=== PATIENT | female | born 1970 | race Caucasian/White ===

== ENCOUNTER → 2024-12-21 | Outpatient (CLI) | payer MEDICAID, SELFPAY ==
--- NOTE | 2024-12-21 13:15 | XR_ITS ---
Examination: Screening digital mammography, bilateral Computer aided detection 3-D breast Tomosynthesis, bilateral Date and time of exam: December 21, 2024 1309 hours Compared to mammograms dating to July 29, 2018 Indication: Screening, patient states left breast tenderness 4 months Technique: Nonmagnified MLO, CC views of the breasts to been obtained, reconstructed from 3-D Tomosynthesis images. R2 computer aided detection program utilized for evaluation of suspicious masses and/or abnormal calcifications. 3-D Tomosynthesis images obtained. Findings: Scattered areas of fibroglandular density2 4 mm circumscribed nodule upper outer left breast 12 mm focal asymmetry retroareolar region left breast Impression: BI-RADS Category 0: Incomplete: Need additional imaging evaluation Recommend follow-up spot tomographic views of 4 mm circumscribed nodule upper outer left breast as well as 12 mm focal asymmetry retroareolar region left breast, left breast sonography to complete the workup
== END | disposition home or self-care (01) ==
LOC: CDIM 13:01
PROVIDERS: Referring Provider Nurse Practitioner; Visit Provider Nurse Practitioner
DX: Z12.31 Encounter for screening mammogram for malignant neoplasm of breast (principal); N63.21 Unspecified lump in the left breast, upper outer quadrant; N64.89 Other specified disorders of breast
CPT/HCPCS: 77063; 77067

== ENCOUNTER → 2025-02-07 | Outpatient (CLI) | payer MEDICAID, SELFPAY ==
--- NOTE | 2025-02-07 10:00 | XR_ITS ---
Examination: Breast ultrasound, unilateral, left complete Date and time of exam: February 08, 2000 2510 0 1:00 AM INDICATIONS: Mammogram December 21, 2024 4 mm circumscribed nodule upper outer left breast 12 mm focal asymmetry retroareolar region left breast Technique: Real-time lr scale ultrasonographic imaging performed left breast including all 4 quadrants as well as nipple retroareolar and axillary region. Findings: No cystic or solid mass IMPRESSION: BI-RADS Category 1: Negative studies
--- NOTE | 2025-02-07 10:30 | XR_ITS ---
Examination: Diagnostic digital mammography, unilateral, left Computer aided detection 3-D breast Tomosynthesis, unilateral Date and time of exam: February 07, 2025 1003 hours, INDICATIONS: Mammogram December 21, 2024 4 mm circumscribed nodule upper outer left breast, 12 mm focal asymmetry retroareolar region left breast Technique: Nonmagnified MLO, CC views of the left breast have been obtained, reconstructed from 3-D Tomosynthesis images. R2 computer aided detection program utilized for evaluation of suspicious masses and/or abnormal calcifications. 3-D Tomosynthesis images obtained. Findings: Scattered areas of fibroglandular density 4 mm circumscribed nodule upper outer left breast No suspicious retroareolar nodule Impression: BI-RADS category 2: Benign findings Recommend yearly follow-up mammography
== END | disposition home or self-care (01) ==
LOC: CDIM 09:50
PROVIDERS: PCP Family Medicine; Referring Provider Family Medicine; Visit Provider Family Medicine
DX: R92.322 Mammographic fibroglandular density, left breast (principal); N64.89 Other specified disorders of breast
CPT/HCPCS: 76641; 77061; 77065; G0279

== ENCOUNTER → 2025-02-09 | Outpatient (CLI) | payer MEDICAID, SELFPAY ==
--- NOTE | 2025-02-09 13:21 | XR_ITS ---
Examination: Shoulder,right, 3 views Technique: Shoulder AP internal rotation, AP external rotation, Y view shoulder, 3 views Exam date and time :February 09, 2025 1430 hours INDICATIONS: Injury to the shoulder as a teenager, right shoulder pain 2 months. FINDINGS: Mild to moderate narrowing glenohumeral joint Prominent osteopenia No shoulder fracture or dislocation IMPRESSION: Mild to moderate osteoarthritis glenohumeral joint
== END | disposition home or self-care (01) ==
LOC: CDIM 13:13
PROVIDERS: PCP Family Medicine; Referring Provider Internal Medicine; Visit Provider Internal Medicine
DX: M19.011 Primary osteoarthritis, right shoulder (principal); S49.91XS Unspecified injury of right shoulder and upper arm, sequela; X58.XXXS Exposure to other specified factors, sequela
CPT/HCPCS: 73030

== ENCOUNTER 2025-04-16 10:30 | Outpatient (RCR) | payer MEDICAID, SELFPAY ==
--- NOTE | 2025-04-13 14:11 | PTNOTE_ITS ---
PT OP Initial Eval Patient Information Outpatient Physical Therapy Treatment Date: 04/12/25 Visit Reasons: right shoulder pain Medical Diagnosis: Right Shoulder Pain Treatment Dx #1: Right Shoulder Pain Start of Care: 04/13/25 Date of Onset: 6 months ago Smoking Status Smoking Status: Never smoker Initial Assessment Subjective: Pt is a 54 y/o female reports of chronic right shoulder pain (08/31) worsening ~ 6 months. Pt's most recent xray showed mild OA but no MRI has been done. Pt has limitation with overhead motions, lifting, chores, self care, cooking,cleaning, and performing recreational activities. Objective: Right Shoulder AROM Flexion: 160 deg Abduction: 160 deg External Rotation: 70 deg Internal Rotation: 50 deg Right Shoulder MMTs: grossly 3/5 Right Scapula MMTs: grossly 3/5 Special Test (+) speed (+) pascal's Palpation: TTP long head of biceps Assessment: Pt demonstrate right shoulder pain with mobility deficits leading to difficulty with ADLs. Pt will attempt physical therapy if pain persist Pt will be refer back to provider for further consultation. Short Term and Care Home Goals 1) Increase right shoulder AROM WFL in 6 wks to be able to perform overhead motion 2) Increase right shoulder MMTs grossly to 4-/5 in 6 wks to be able to perform lifting activities 3) Decrease shoulder pain to 2/10 in 6 wks to be able to perform chores 4) Increase right scapula MMTs grossly to 4-/5 in 6 wks to denisha ble to perform self care activities 5) Indep with HEP Treatment Plan 1) Manual Therapy 2) Therapeutic Activities 3) Therapeutic Exercises 4) Modalities (ice, heat) Frequency and Duration: 2 x wk for 6 wks Certification Dates: 04/12/25 to 07/13/25 Procedure Charges OP PT Eval Mod Complex 30 minutes: Yes
--- NOTE | 2025-04-16 11:40 | PT.ODAYNRPT ---
PT Outpatient Daily Note OP Daily Note Outpatient Physical Therapy Treatment Date: 04/16/25 Visit Reasons: right shoulder pain Subjective: Pt's shoulder feels about the same. Pt mentioned she's unsure if it's related to the way how she sleeps. Objective: Please see flow chart for list of ther ex performed Assessment: improve scaption shoulder flexion and scaption AAROM post Pt session, however, no change in overall pain. Post ice helped with pain and soreness Plan: Continue with PT Length of Time (minutes) of Treatment: 30 Minutes Procedure Charges Therapeutic Exercise 30 minutes: Yes
== END 2025-04-22 23:59 | disposition home or self-care (01) ==
LOC: CPTX 10:30
PROVIDERS: PCP Internal Medicine; Referring Provider Internal Medicine; Visit Provider Internal Medicine
DX: M25.511 Pain in right shoulder (principal); G89.29 Other chronic pain; M19.011 Primary osteoarthritis, right shoulder
CPT/HCPCS: 97110; 97162

== ENCOUNTER 2025-05-03 14:00 | Outpatient (RCR) | payer MEDICAID, SELFPAY ==
--- NOTE | 2025-04-24 12:51 | PT.ODAYNRPT ---
PT Outpatient Daily Note OP Daily Note Outpatient Physical Therapy Treatment Date: 04/24/25 Visit Reasons: RIGHT SHOULDER PAIN Subjective: Pt continues to experience pain with certain movements and continues to feel her shoulder catching. Objective: Please see flow sheet for ther ex list. Assessment: Interventions completed within pt tolerable range. Plan: Continue with POC. Progress as tolerated. Length of Time (minutes) of Treatment: 30 Minutes Procedure Charges Therapeutic Exercise 30 minutes: Yes
--- NOTE | 2025-04-26 12:46 | PT.ODAYNRPT ---
PT Outpatient Daily Note OP Daily Note Outpatient Physical Therapy Treatment Date: 04/26/25 Visit Reasons: RIGHT SHOULDER PAIN Subjective: Pt's shoulder feels better with certain exercises, however, still has pain with overhead motions and it catches . Objective: Please see flow chart for list of ther ex performed Assessment: progressing with shoulder AROM, however, no change in mechanical pain reported in the front of the shoulder with shoulder rotation. Plan: Continue with PT Length of Time (minutes) of Treatment: 30 Minutes Procedure Charges Therapeutic Exercise 30 minutes: Yes
--- NOTE | 2025-04-30 13:36 | PT.ODAYNRPT ---
PT Outpatient Daily Note OP Daily Note Outpatient Physical Therapy Treatment Date: 04/30/25 Visit Reasons: RIGHT SHOULDER PAIN Subjective: Pt's shoulder feels about the same and continues to click/pop. Now patient is experiencing pain up to the upper trape. Objective: Please see flow chart for list of ther ex performed Assessment: no change in overall pain; patient continue to demonstrate functional ROM with exercises Plan: Continue with PT Length of Time (minutes) of Treatment: 30 Minutes Procedure Charges Therapeutic Exercise 30 minutes: Yes
--- NOTE | 2025-05-03 14:17 | PT.ODS1RPT ---
PT OP Progress/Discharge Note Date of Service: 05/03/25 Progress Note/DC Note Progress Note/Discharge Note: DC Note Patient Information Visit Reasons: RIGHT SHOULDER PAIN Medical Diagnosis: Right Shoulder Pain Treatment Dx #1: Right Shoulder Pain Service Discharge Date: 05/03/25 Status Subjective: Pt's shoulder continues to pop and click with certain arm movement. Pt reports of minimal changes with shoulder pain (4/10) since starting physical therapy. Pt still has limitation with overhead motions, lifting, chores, self care, cooking, cleaning, and performing recreational activities. Objective: Right Shoulder AROM: all motions are WFL with end range pain in all plane Right Shoulder MMTs: grossly 3+/5 Right Scapula MMTs: grossly 3+/5 Special Test (+) speed's (+) active pascal's Palpation: TTP long head of biceps tendon Assessment: Pt demonstrate right shoulder pain consistent with possible labral involvement leading to difficulty with ADLs. Pt will no longer benefit from physical therapy due to plateau towards goals. Recommend shoulder MRI to help rule in/out nature of pain. Pt was not instructed on HEP last session due to demonstrating functional shoulder mobility and strength. Pt advised to follow up with PCP for further consultation; thank you for your referrals Plan: D/C home and follow up with MD SOLIS Recommend shoulder MRI Procedure Charges Therapeutic Exercise 15 minutes: Yes
== END 2025-05-23 23:59 | disposition home or self-care (01) ==
LOC: CPTX 14:00
PROVIDERS: PCP Internal Medicine; Referring Provider Internal Medicine; Visit Provider Internal Medicine
DX: M25.511 Pain in right shoulder (principal); G89.29 Other chronic pain; M19.011 Primary osteoarthritis, right shoulder
CPT/HCPCS: 97110